=== PATIENT | male | born 1945 | race Caucasian/White ===

== ENCOUNTER → 2016-03-29 | Outpatient (CLI) | payer OTHER ==
[~2016-03-29] MED LIST: GADOBUTROL 10 ML VIAL IVP ONE
[2016-03-29 13:07] LABS: GLOMERULAR FILTRATION RATE > 60
--- NOTE | 2016-03-30 08:25 | MR ---
MRI Cervical Spine (Without Contrast) 1253 hours History: R42, dizziness, R20.2, paresthesias M54.3, neck pain, R41.89, cognitive changes. Technique: Sagittal T1, T2, axial T2, and 3-D gradient echo MR sequences of the cervical spine withou t contrast. Findings: No cervical compression fractures. No destructive osseous lesions. Cerebellar tonsils ar e in normal position. Cervical spinal cord demonstrates normal signal without cord edema or myelomala aryan. C2-C3: Mild degenerative disk disease and mild bilateral facet arthropathy without disk herniation or stenosis. C3-C4: Moderate degenerative disk disease with dorsal disk/osteophyte complex and bilateral uncoverte bral osteophytes with mild bilateral facet arthropathy resulting in mild central canal stenosis and m oderate to severe bilateral neural foraminal stenosis. C4-C5: Mild degenerative disk disease with small dorsal disk/osteophyte complex, bilateral uncoverteb ral osteophytes, and mild bilateral facet arthropathy resulting in mild central canal stenosis and mi ld to moderate bilateral neural foraminal stenosis, right worse than left. C5-C6: Moderate degenerative disk disease with dorsal disk/osteophyte complex, lateral uncovertebral osteophytes right worse than left, and mild bilateral facet arthropathy resulting in mild central can al stenosis, moderate to severe right neural foraminal stenosis, and mild to moderate left neural for aminal stenosis. C6-C7: Moderate degenerative disk disease with dorsal disk/osteophyte complex and bilateral uncoverte bral osteophytes resulting in moderate to severe right neural foraminal stenosis, mild to moderate le ft neural foraminal stenosis, and minimal central canal stenosis. C7-T1: Mild degenerative disk disease with mild bilateral facet arthropathy. No central canal or neur al foraminal stenosis. Impression: 1. Multilevel mild to moderate degenerative disk disease with dorsal disk/osteophyte complexes from C 3-C4 through C6-C7 and bilateral uncovertebral osteophytes with mild bilateral facet arthropathy resu lting in mild central canal stenosis at most levels and variable bilateral neural foraminal stenosis, moderate to severe at C3-C4, C5-C6, and C6-C7, right worse than left. 2. No cord compression, cord edema, or myelomalacia. 3. Please see above findings at specific disk levels.
--- NOTE | 2016-03-30 08:26 | MR ---
Unenhanced and Enhanced MR Imaging of the Brain (with Additional Attention to the Internal Auditory C anals) Clinical History: 70-year-old male with cognitive changes, dizziness with an unsteady gait, paresthes ias, and cervicalgia. Rule out structural etiology. ICD 10 Diagnostic Codes: R42, R41.89, R26.81, R20.2, and M54.3. Technique: Sagittal T1, axial T2, FLAIR, SWI, DWI, and ADC imaging of the brain. The patient received 9 mL of IV Gadavist without complication, and axial FSPGR T1-weighted, and contrast-enhanced sagitta l and coronal T1 FLAIR sequences were obtained. These images were supplemented by thin-collimated axi al 3-D FIESTA sequences through the cerebellopontine angles and pre- and postcontrast reduced field-o f-view thin-collimated axial and coronal T1-weighted sequences through the internal auditory canals. Comparison Study: None. Findings: The ventricles and basilar cisterns are normal in size (for the patient's age), and symmetr ical in configuration. There is no midline shift, or other evidence of mass effect. There is no acute or subacute abnormal intra or extra-axial fluid collection. The SWI sequences do not reveal any bloo subhash artifact to suggest occult hemorrhagic products or amyloid angiopathy. The brainstem and cerebel lum are essentially unremarkable. There is a punctate focus of hyperintense signal in the right centr al farzana (on series 8, image 10), likely related to chronic microvascular ischemic gliosis. There is n o restricted diffusion to suggest an acute or subacute infarction. The cerebellopontine angles appear normal, and there is a normal morphology of the vestibulocochlear apparatus on each side. There is n o unusual enhancement to suggest an acoustic neuritis or a neuroma. There is subtotal opacification o f the maxillary sinuses, with fluid and mucosal thickening. Similar features are also noted in the et hmoids, to the level of the frontal-ethmoidal recesses. The above features could reflect an acute-on- chronic sinusitis. The sphenoid sinuses are patent, as are the mastoids. There are appropriate verteb robasilar, carotid artery, and dural venous sinus flow-voids. There is no unusual parenchymal or lept omeningeal enhancement after gadolinium administration. The craniocervical junction, sella turcica, p ineal gland, and the orbits are unremarkable. Impression: 1. Normal MR appearance of the internal auditory canals. 2. Query [id number] maxillary and ethmoid sinusitis. 3. Punctate right pontine chronic microvascular ischemic gliosis.
== END ==
LOC: FIMAGING 12:19
PROVIDERS: ATTEND Psychiatry & Neurology Neurology
DX: R42 Dizziness and giddiness (principal); R41.89 Other symptoms and signs involving cognitive functions and awareness; R26.81 Unsteadiness on feet; R20.2 Paresthesia of skin; M54.2 Cervicalgia
CPT/HCPCS: 70553; 72141; A9585

== ENCOUNTER → 2016-04-06 | Outpatient (CLI) | payer OTHER ==
--- NOTE | 2016-04-06 13:41 | DX ---
PA and lateral chest History: Shortness of breath, decreased right basilar breath sounds. Comparison: None available. Findings: There is mild peribronchial thickening without focal consolidation. There is no pneumothora x or pleural effusion. The heart and pulmonary vasculature are normal. Mild degenerative change is pr esent in the spine with mild anterior height reduction of multiple midthoracic vertebral bodies. Impression: Mild peribronchial thickening suggesting airways disease/bronchitis.
== END ==
LOC: BMCIMAGING 11:54
PROVIDERS: ATTEND Nurse Practitioner Adult Health
DX: R06.02 Shortness of breath (principal)